=== PATIENT | female | born 1955 | race Caucasian/White ===

== ENCOUNTER 2024-05-17 10:44 | Emergency (ER) | payer MEDICARE, OTHER, SELFPAY ==
--- NOTE | ~2024-05-17 | CT_ITS ---
EXAMINATION: CT brain wo con DATE: 05/17/2024 11:25 INDICATION: Fall with head injury and neck stiffness TECHNIQUE: Computed tomography (CT) of the head was performed without intravenous contrast. Sagittal and coronal reconstructions were performed. The mA was adjusted according to patient size. Iterative reconstruction technique was employed. The dose-length product was 605.33 mGy-cm. COMPARISON: None FINDINGS: No fracture. No acute intracranial hemorrhage, acute infarction or abnormal extra axial fluid collect ion. Ventricles are normal and symmetric. No mass/mass effect. Complete opacification of the left sph enoid sinus and prominent mucosal thickening in the right sphenoid and bilateral ethmoid and maxillar y sinuses. Thickened sclerotic hernandez to the bilateral sphenoid sinuses consistent with chronic sinusi tis. The orbits and mastoid air cells are normal. IMPRESSION: 1. No fracture or acute intracranial process. 2. Chronic sinus disease. Reviewed, dictated and finalized at location A. [facility]
--- NOTE | ~2024-05-17 | CT_ITS ---
EXAMINATION: CT cervical spine wo con DATE: 05/17/2024 11:25 INDICATION: Head injury. Fall. TECHNIQUE: Computed tomography (CT) of the cervical spine was performed without intravenous contrast. Automated exposure control and iterative reconstruction technique were employed. The dose-length pro duct was 349.50 mGy-cm. COMPARISON: None FINDINGS: There is mild kyphosis of cervical spine. There is 5 degrees dextrocurvature of cervical sp ine. Vertebral body heights are normal. There is moderately decreased disc height at C3-C4, mildly de creased disc height at C4-C5, and moderately decreased disc height at C5-C6 and C6-C7. The following disc levels are specifically discussed: C2-C3: There is mild bilateral uncovertebral joint osteoarthritis. There is moderate right and mild l eft facet joint osteoarthritis. There is no neural foraminal stenosis. There is no central canal sten osis. C3-C4: There is severe bilateral uncovertebral joint osteoarthritis. There is mild bilateral facet bhumika int osteoarthritis. There is mild bilateral neural foraminal stenosis. There is mild central canal st enosis. C4-C5: There is severe bilateral uncovertebral joint osteoarthritis. There is no facet joint osteoart hritis. There is mild bilateral neural foraminal stenosis. There is mild central canal stenosis. C5-C6: There is severe bilateral uncovertebral joint osteoarthritis. There is mild bilateral facet bhumika int osteoarthritis. There is mild bilateral neural foraminal stenosis. There is mild central canal st enosis. C6-C7: There is mild right and severe left uncovertebral joint osteoarthritis. There is severe right and moderate left facet joint osteoarthritis. There is mild left neural foraminal stenosis. There is mild central canal stenosis. C7-T1: There is no uncovertebral joint osteoarthritis. There is mild right and severe left facet join t osteoarthritis. There is mild left neural foraminal stenosis. There is no central canal stenosis. IMPRESSION: 1. No fracture. 2. Moderate cervical spondylosis. Reviewed, dictated and finalized at location A. [facility]
[2024-05-17 10:47] VITALS: BP 165/80; PULSE 100; RESP 18; TEMP 36.6; O2SAT 99
--- NOTE | 2024-05-17 12:30 | PC.NURSE ---
C- collar removed at this time d/t CT results
--- NOTE | 2024-05-17 14:17 | ED.FALL ---
HPI - Fall General Chief Complaint: Fall Stated Complaint: fell/hit head Time Seen by Provider: 05/17/24 13:34 History of Present Illness HPI Narrative: 68-year-old female presenting after a fall. She slipped on the snow fell backwards striking her head on the ground. Has a headache as well as some tightness in her neck and upper shoulders. Wanted to get checked out given her age. Not on anticoagulation. No further complaints. Review of Systems Review of Systems: All systems reviewed & are unremarkable except as noted in HPI and below Exam Narrative: GENERAL: Well-appearing, in no acute distress, pleasant cooperative HEAD: Normocephalic, atraumatic. EYES: PERRLA and EOMI. ENT: Grossly unremarkable NECK: Supple. No midline tenderness, there is bilateral paraspinal tenderness, worse on the left CHEST: No respiratory distress. HEART: Regular rate and rhythm EXTREMITIES: Normal range of motion SKIN: Warm, dry, no rash. NEURO: Alert and oriented x3. PSYCH: Normal mood and affect. Course Vital Signs Vital signs: Vital Signs Temperature 97.8 F 05/17/24 10:47 Pulse Rate 100 05/17/24 10:47 Respiratory Rate 18 05/17/24 10:47 Blood Pressure 165/80 H 05/17/24 10:47 Pulse Oximetry 99 05/17/24 10:47 Oxygen Delivery Room Air 05/17/24 10:47 Temperature 97.8 F 05/17/24 10:47 Pulse Rate 100 05/17/24 10:47 Respiratory Rate 18 05/17/24 10:47 Blood Pressure 165/80 H 05/17/24 10:47 Pulse Oximetry 99 05/17/24 10:47 Oxygen Delivery Room Air 05/17/24 10:47 MDM - Fall MDM Narrative Medical decision making narrative: 68-year-old female presenting after a closed head injury. Vitals are stable. Exam remarkable for the above. CT brain C-spine show no acute abnormalities. Feel she is safe for outpatient management. Discussed appropriate supportive care with Tylenol and naproxen. Will send in for some Flexeril to be used as needed. Advised close PCP follow-up. Patient is agreeable this plan. Discharged in stable condition. Differential Diagnosis Differential diagnosis: Likely concussion without loss of consciousness and other (Close head injury, cervical strain, fall) Medical Records Attestation: I reviewed the patient's medical records. Imaging Data Radiologist's impression: ITS Impressions Head CT 05/17/24 11:25 IMPRESSION: 1. No fracture or acute intracranial process. 2. Chronic sinus disease. Cervical Spine CT 05/17/24 11:44 IMPRESSION: 1. No fracture. 2. Moderate cervical spondylosis. Critical Care Time Critical Care Time Critical Care Time: No Discharge Plan Discharge Clinical Impression: Fall, Closed head injury, Cervical strain Patient Disposition: Home, Self-Care Condition: Stable Instructions: Antibiotic Form, Cervical Strain (ED), Head Injury (DC) Additional Instructions: Please use Tylenol and naproxen/ibuprofen for pain control. You may use the Flexeril as needed. Follow-up closely with your PCP. If your symptoms worsen or other concerning symptoms arise, please return to the ER. Prescriptions: New cyclobenzaprine 10 mg tablet 10 mg PO TID PRN (Reason: muscle spasm) Qty: 14 0RF Follow-up/Referrals: Ramu,Jewel Fay MD [Primary Care Provider] -
[2024-05-17] MEDS: ACETAMINOPHEN 500 MG TABLET 1000 MG PO (14:26)
[2024-05-17] MEDS: NAPROXEN 500 MG TABLET PO (14:26)
[2024-05-17 14:40] VITALS: BP 114/66; PULSE 73; RESP 16; TEMP 36.6; O2SAT 100
== END 2024-05-17 14:41 | disposition home or self-care (01) ==
LOC: ANHED 14:31
PROVIDERS: Emergency Provider Emergency Medicine; PCP Internal Medicine
DX: S09.90XA Unspecified injury of head, initial encounter (principal); S16.1XXA Strain of muscle, fascia and tendon at neck level, initial encounter; W00.0XXA Fall on same level due to ice and snow, initial encounter
CPT/HCPCS: 70450; 72125; 99284; A9270